=== PATIENT | female | born 1995 | race African-American/Black ===

== ENCOUNTER 2021-03-14 01:01 | Emergency (ER) | payer MEDICAID ==
[~2021-03-14] VITALS: Ht 170.2 cm; Wt 84.4 kg
[2021-03-14] MEDS ORDERED: ALBU18HF2 INH (01:02)
[2021-03-14] MEDS ORDERED: PRED20TA PO (01:02)
[2021-03-14] MEDS ORDERED: INHA1INH2 INH (01:02)
[2021-03-14] MEDS ORDERED: ALBU1.256 NEB (01:02)
[2021-03-14] MEDS ORDERED: predniSONE 20 mg tablet PO ONE (01:25)
[2021-03-14] MEDS ORDERED: ipratropium/albuterol 3ml nebule NEB ONE (01:45)
[2021-03-14 01:51] VITALS: BP 123/83
== END 2021-03-14 01:52 | disposition home or self-care (01) ==
LOC: ER 01:02
DX: J45.901 Unspecified asthma with (acute) exacerbation (principal); Z79.899 Other long term (current) drug therapy
CPT/HCPCS: 94640; 99283; J7512; 94760